=== PATIENT | female | born 1960 | race Hispanic/Latino ===

== ENCOUNTER 2019-07-03 12:13 | Observation (INO) | payer SELFPAY ==
[2019-07-03 12:39] LABS: #Basophils 0.1 thou/uL (0.0-0.2); #Eosinphils 0.4 thou/uL (0.0-0.7); #Monocytes 0.4 thou/uL (0.11-0.59); #Neutrophils 4.3 thou/uL (1.40-6.50); %Basophils 1.1 % (0.0-1.0); %Eosinophils 5.4 % (0.0-10.0); %Lymphocytes 27.5 % (21.0-51.0); %Monocytes 5.8 % (0.0-10.0); %Neutrophils 60.1 % (42.0-75.0); Hemoglobin 11.6 g/dL (12.0-16.0); Mean Corpuscular HGB CONC 32.6 g/dL (32.0-36.0); Mean Corpuscular Hemoglobin 31.4 pg (27.0-31.0); Mean Corpuscular Volume 96.3 fL (78.0-98.0); Mean Platelet Volume 6.6 fL (7.4-10.4); Platelet Count 218 thou/uL (130-400); RBC Distribution Width 12.6 % (11.5-14.5); White Blood Cell (WBC) Count 7.1 thou/uL (4.8-10.8)
[2019-07-03 13:02] LABS: ALT (SGPT) 42 U/L (8-55); AST (SGOT) 24 U/L (5-34); Albumin 4.1 g/dL (3.5-5.0); Alkaline Phosphatase 110 U/L (40-110); Anion Gap 14 mmol/L (10-20); BUN (Urea Nitrogen) 9 mg/dL (9.8-20.1); Bilirubin, Total 0.4 mg/dL (0.2-1.2); Calc. Creatinine Clearance 0 mL/min (70-130); Calcium 9.5 mg/dL (7.8-10.44); Carbon Dioxide 24 mmol/L (22-29); Chloride 105 mmol/L (98-107); Estimated GFR-MDRD 80; Glucose 122 mg/dL (70-105); Potassium 3.8 mmol/L (3.5-5.1); Protein, Total 8.1 g/dL (6.0-8.3); Sodium 139 mmol/L (136-145)
[2019-07-03] MEDS ORDERED: Aspirin Chewable 81 MG TAB ONE (14:04)
[2019-07-03] MEDS ORDERED: Nitroglycerin 0.4 MG TAB (25 Tab Bottle) PO PRN (14:11)
[2019-07-03] MEDS ORDERED: Lorazepam 0.5 MG TAB PO PRN (14:14)
--- NOTE | 2019-07-03 15:04 | RAD ---
CHEST ONE VIEW: 07/03/19 HISTORY: Chest pain. COMPARISON: None. FINDINGS: Heart size is upper limits of normal. No confluent air space consolidation, pneumothorax, or effusion . No acute osseous abnormality. IMPRESSION: No acute intrathoracic abnormality. POS: H
--- NOTE | 2019-07-03 15:29 | PDOC.HHP ---
Hospitalist HPI - History of Present Illness Chest pain History of Present Illness: This patient is a 59-year-old female with a history of diabetes hyperlipidemia. She presented to the emergency department reporting chest pain. Patient reports the pain is primarily on her left side. Pain actually started about 6 days ago. It was a Sunday and she was in [place] with her daughter. Said the pain continued to linger when she returned home yesterday when she woke it was more severe when she ultimately had to go home from work. She took 1 of her anxiety medications and had no relief. Today she woke and still had the pain present. She describes the pain as "uncomfortable". She has shooting pains that radiate up into the left neck and down the left arm. These last 2 to 3 seconds and stop. She does have some numbness in her left hand that preceded this chest pain. She reports that she has some mild weakness and thinks she has occasionally almost dropped things at work. She denies any associated shortness of breath nausea or lightheadedness. She is tried no medications for this. She reports the pain is more intense when she is lying on her right side. ED Course: Patient was given aspirin in the emergency department. She denied any acute pain and therefore no further interventions were attempted medically. Hospitalist ROS - Review of Systems Constitutional: denies: fever, chills Respiratory: denies: shortness of breath Cardiovascular: reports: chest pain. denies: palpitations, edema Gastrointestinal: denies: nausea, vomiting, abdominal pain Musculoskeletal: reports: neck pain (Chronic left-sided neck pain) All other systems reviewed; all pertinent +/- noted in HPI/Subj - Medication Medications: metFORMIN Nargis July 03, 2019 12:34 Souza RN, Daniel tablet : Strength - 1,000 mg : ORAL Patient Dose: 1000 mg Oral 2 times a day. aspirin oral SunJuly 03, 2019 12:34 Souza RN, Daniel tablet : Strength - 81 mg : ORAL Patient Dose: Unknown. Pepcid AC SunJuly 03, 2019 12:34 Souza RN, Daniel tablet : Strength - 20 mg : ORAL Patient Dose: Unknown. meloxicam SunJuly 03, 2019 12:35 Souza RN, Daniel tablet : Strength - 15 mg : ORAL Patient Dose: Unknown. LORazepam oral SunJuly 03, 2019 12:35 Souza RN, Daniel tablet : Strength - 0.5 mg : ORAL Patient Dose: Unknown. glipiZIDE SunJuly 03, 2019 12:35 Souza RN, Daniel tablet : Strength - 5 mg : ORAL Patient Dose: Unknown. DULoxetine SunJuly 03, 2019 12:35 Souza RN, Daniel capsule,delayed release(DR/EC) : Strength - 60 mg : ORAL Patient Dose: Unknown. pregabalin (bulk) SunJuly 03, 2019 12:36 Souza RN, Daniel powder : Strength - 100 % : MISCELLANEOUS Patient Dose: 50 mg Oral. rosuvastatin SunJuly 03, 2019 12:36 Souza RN, Daniel tablet : Strength - 10 mg : ORAL Patient Dose: Unknown. Hospitalist History - Past Medical History Source: patient Cardiac: reports: Hyperlipidemia Musculoskeletal: reports: Osteoarthritis Endocrine: reports: Diabetes - Past Surgical History Past Surgical History: reports: , Hysterectomy Other Surgical History: Knee surgery. Right rotator cuff surgery. - Family History Family History: reports: cardiac disorder (Father had congestive heart failure) - Social History Smoking Status: Never smoker Alcohol: reports: Occassional Drugs: reports: none Living Situation: With Family Activity level: independent ambulation Other Social History: . She is full code. Her son Leonard would be her surrogate decision maker should that be necessary. - Exam General Appearance: NAD, awake alert Eye: PERRL, anicteric sclera ENT: normocephalic atraumatic, no oropharyngeal lesions, moist mucosa Neck: supple, symmetric, no JVD, no thyromegaly, no lymphadenopathy, no carotid bruit Heart: RRR, no murmur, no gallops, no rubs, normal peripheral pulses Respiratory: CTAB, no wheezes, no rales, no ronchi, normal chest expansion, no tachypnea, normal percussion Gastrointestinal: soft, non-tender, non-distended, normal bowel sounds, no palpable masses, no hepatomegaly, no splenomegaly, no bruit Extremities: no cyanosis, no clubbing, no edema Skin: normal turgor, no lesions, no rashes Neurological: cranial nerve grossly intact, normal sensation to touch, no weakness, no focal deficits, no new deficit Musculoskeletal: normal tone, normal strength, no muscle wasting Psychiatric: normal affect, normal behavior, A&O x 3 Hospitalist Results - Labs Result Diagrams: 07/03/19 12:25 07/03/19 12:25 Lab results: WBC 7.1 thou/uL (4.8-10.8) 07/03/19 12:25 Hgb 11.6 g/dL (12.0-16.0) L 07/03/19 12:25 Hct 35.6 % (36.0-47.0) L 07/03/19 12:25 MCV 96.3 fL (78.0-98.0) 07/03/19 12:25 Plt Count 218 thou/uL (130-400) 07/03/19 12:25 Neutrophils % 60.1 % (42.0-75.0) 07/03/19 12:25 Sodium 139 mmol/L (136-145) 07/03/19 12:25 Potassium 3.8 mmol/L (3.5-5.1) 07/03/19 12:25 Chloride 105 mmol/L (98-107) 07/03/19 12:25 Carbon Dioxide 24 mmol/L (22-29) 07/03/19 12:25 BUN 9 mg/dL (9.8-20.1) L 07/03/19 12:25 Creatinine 0.74 mg/dL (0.6-1.1) 07/03/19 12:25 Glucose 122 mg/dL (70-105) H 07/03/19 12:25 Calcium 9.5 mg/dL (7.8-10.44) 07/03/19 12:25 Total Bilirubin 0.4 mg/dL (0.2-1.2) 07/03/19 12:25 AST 24 U/L (5-34) 07/03/19 12:25 ALT 42 U/L (8-55) 07/03/19 12:25 Alkaline Phosphatase 110 U/L (40-110) 07/03/19 12:25 Troponin I Less than 0.010 ng/mL (< 0.028) 07/03/19 12:25 B-Natriuretic Peptide 34.2 pg/mL (0-100) 07/03/19 12:25 Serum Total Protein 8.1 g/dL (6.0-8.3) 07/03/19 12:25 Albumin 4.1 g/dL (3.5-5.0) 07/03/19 12:25 - EKG Interpretation EKG: No acute findings. Hospitalist H&P A/P - Problem (1) Chest pain Code(s): R07.9 - CHEST PAIN, UNSPECIFIED Status: Acute (2) Diabetes mellitus Code(s): E11.9 - TYPE 2 DIABETES MELLITUS WITHOUT COMPLICATIONS Status: Acute (3) Hyperlipidemia Code(s): E78.5 - HYPERLIPIDEMIA, UNSPECIFIED Status: Acute (4) Anxiety Code(s): F41.9 - ANXIETY DISORDER, UNSPECIFIED Status: Acute (5) Depression Code(s): F32.9 - MAJOR DEPRESSIVE DISORDER, SINGLE EPISODE, UNSPECIFIED Status : Acute (6) Osteoarthritis Code(s): M19.90 - UNSPECIFIED OSTEOARTHRITIS, UNSPECIFIED SITE Status: Acute - Plan Plan: Chest pain: Patient will be placed in observation on telemetry. We will continue serial troponins. PRN nitroglycerin. Stress test in the morning assuming the troponins were negative. I am also concerned about possible cervical neuropathy /radiculopathy given the nature of the symptoms and the numbness in the hand. Will obtain an MRI of the C-spine. Diabetes mellitus: continue with her usual home medications. Accu-Cheks. Hyperlipidemia: Continue with her home dose of rosuvastatin.
[2019-07-03 16:01] LABS: Troponin I Less than 0.010 ng/mL (< 0.028)
[2019-07-03 17:26] VITALS: BMI 30.2
[2019-07-03] MEDS: metFORMIN 500 MG TAB PO SCH (18:09)
[2019-07-03 18:42] LABS: Troponin I Less than 0.010 ng/mL (< 0.028)
--- NOTE | 2019-07-03 19:27 | MRI ---
MRI OF THE CERVICAL SPINE WITHOUT CONTRAST: 07/03/19 INDICATION: History of neck and left arm pain. COMPARISON: None. FINDINGS: The visualized bone marrow signal intensity appears within normal limits. The visualized posterior fo ssa is normal appearing. At C2-3, there is moderate left facet joint degenerative change. There is no appreciable central susy l or neural foraminal narrowing. At C3-4, there is a mild broad based bulge with moderate left and mild right facet joint degenerative change. There is mild left neural foraminal narrowing. At C4-5, there is mild broad based bulge with facet hypertrophy and a small left paracentral disc pro trusion. The protrusion causes mild effacement of the subarachnoid space with mild ventral cord effac ement. At C5-6, there is a broad based bulge with a superimposed central protrusion. There is no neural fora milton narrowing. At C6-7, there is an asymmetric to the left broad based bulge with a superimposed left foraminal prot rusion causing mild left neural foraminal narrowing. At C7-T1, there is no appreciable central canal or neural foraminal narrowing. IMPRESSION: 1. Mild central canal narrowing at C4-5 due to a broad based bulge and superimposed left paracen tral protrusion. There is mild ventral effacement of the left subarachnoid space and ventral cord. 2. Small central protrusion at C5-6 with mild ventral subarachnoid effacement without cord compr ession. 3. Asymmetric to the left broad based disc bulge with a small left foraminal disc protrusion cau sing mild left neural foraminal narrowing at C6-7. POS: ROSAURA
[2019-07-04] MEDS ORDERED: Melatonin 3 MG TAB PO PRN ×2 (01:46→02:05)
[2019-07-04] MEDS ORDERED: Sodium Chloride 0.9% 10 ML ONE (08:21)
[2019-07-04] MEDS ORDERED: Aspirin 325 mg Enteric Coated Tablet PO SCH (09:00)
[2019-07-04] MEDS ORDERED: DULoxetine 60 MG CAP PO SCH (09:00)
[2019-07-04] MEDS: metFORMIN 500 MG TAB PO SCH (12:22)
--- NOTE | 2019-07-04 12:31 | NM ---
Radionucleotide stress and rest myocardial perfusion scan with CT attenuation correction and SPECT im aging Left ventricular wall motion evaluation and ejection fraction HISTORY: Chest pain. FINDINGS: [place] protocol. Total test time 4:36. There is homogeneous uptake of radiotracer throughout the left ventricular myocardium. No focal perfu barrington defect or reversibility. QGS analysis of gated SPECT images shows no focal wall motion abnormalities. LHR 76%. T.i.d. 0.82. Left ventricular ejection fraction calculated at greater than 80%. IMPRESSION: No evidence of ischemia. Normal LVEF.
[2019-07-04 13:03] VITALS: BP 128/59; TEMP 97.9
--- NOTE | 2019-07-04 14:27 | EKG ---
Test Reason : Blood Pressure : / mmHG Vent. Rate : 075 BPM Atrial Rate : 075 BPM P-R Int : 140 ms QRS Dur : 088 ms QT Int : 406 ms P-R-T Axes : 011 -12 031 degrees QTc Int : 453 ms Normal sinus rhythm Nonspecific T wave abnormality Abnormal ECG Confirmed by JUANITA ARREAGA ([id number]), editor at large ENEDINA DOBBS ([id number]) on 07/04/2019 2:27:43 PM Referred By: Confirmed By:JUANITA Rosales
--- NOTE | 2019-07-05 22:23 | DIS ---
DATE OF ADMISSION: 07/03/2019 DATE OF DISCHARGE: 07/04/2019 DISCHARGE DIAGNOSES: 1. Chest pain, likely noncardiac. 2. Mild degenerative disease of the cervical spine. 3. Diabetes mellitus. 4. Hyperlipidemia. 5. Osteoarthritis. 6. Anxiety/depression. HISTORY OF PRESENT ILLNESS: This patient is a 59-year-old female, who presented to the emergency department was some atypical type chest pain which had gone on for several days. It was in the left side of her chest, seemed to be associated with some occasional sharp pains into her left neck and left hand at times. Her initial workup was unremarkable with no EKG findings and a negative troponin. HOSPITAL COURSE: The patient was placed in observation where she had serial troponins, which remained negative. She underwent a nuclear medicine stress test, which was unremarkable. There was no evidence of any ischemia and the TID was 0.8. Ejection fraction was calculated at greater than 80%. She also had an MRI of the cervical spine given the radiation of symptoms and the numbness in her hand. This revealed mild central canal narrowing at C4-5 due to a broad-based bulge and superimposed left paracentral protrusion with mild ventral effacement of the left subarachnoid space and ventral cord. Small central protrusion of the C5-C6 with ventral subarachnoid effacement without cord compression and asymmetric to the left broad-based disk bulge with a small left foraminal disk protrusion causing mild left neural foraminal narrowing at C6-7. The patient's symptoms had improved substantially by the following morning. She expressed some concerns about some chronic insomnia and was directed to refer that back to her primary care provider. PHYSICAL EXAMINATION: VITAL SIGNS: On the day of discharge, temperature is 97.9, pulse 73, respirations 16, O2 saturation 97% on room air, BP was 128/59. GENERAL: The patient appeared well. HEART: Regular rate and rhythm. LUNGS: Clear. ABDOMEN: Benign. EXTREMITIES: Had no edema. DISPOSITION: The patient is discharged to home. She will continue with her usual medication regimen. ACTIVITY: As tolerated. FOLLOWUP: She is encouraged to follow up with Dr. Butts, her PCP in order to address possible cervical spine issues and her insomnia. She can return to the hospital at anytime, if she feels the need to do so. Job ID: [id number]
== END 2019-07-04 16:33 | disposition home or self-care (01) ==
LOC: ERS 12:13 → 2NO 14:02
PROVIDERS: ADMIT Internal Medicine; ATTEND Internal Medicine
DX: R07.89 Other chest pain (principal); M47.812 Spondylosis without myelopathy or radiculopathy, cervical region; E11.9 Type 2 diabetes mellitus without complications; E78.5 Hyperlipidemia, unspecified; M19.90 Unspecified osteoarthritis, unspecified site; F41.9 Anxiety disorder, unspecified; F32.9 Major depressive disorder, single episode, unspecified; M48.02 Spinal stenosis, cervical region; Z79.1 Long term (current) use of non-steroidal anti-inflammatories (NSAID); Z79.82 Long term (current) use of aspirin; Z79.84 Long term (current) use of oral hypoglycemic drugs; Z79.899 Other long term (current) drug therapy; Z88.8 Allergy status to other drugs, medicaments and biological substances
CPT/HCPCS: 36415; 36600; 71045; 72141; 78452; 80053; 83880; 84484; 85025; 90471; 90732; 93005; 93017; 94760; A9500; G0009; G0378

== ENCOUNTER 2022-06-12 10:28 | Outpatient (CLI) | payer BC ==
[2022-06-12 12:20] LABS: #Basophils 0.1 10x3/uL (0.0-0.2); #Eosinphils 0.5 10x3/uL (0.0-0.5); #Monocytes 0.5 10x3/uL (0.0-1.1); #Neutrophils 3.1 10x3/uL (1.5-8.4); %Basophils 1.3 % (0.0-2.0); %Eosinophils 8.2 % (0.0-6.0); %Lymphocytes 33.6 % (18.0-47.0); %Monocytes 7.7 % (0.0-10.0); Hemoglobin 9.7 g/dL (12.0-15.5); Mean Corpuscular HGB CONC 31.3 g/dL (32.0-36.0); Mean Corpuscular Hemoglobin 26.7 pg (27.0-33.0); Mean Corpuscular Volume 85.4 fl (81.6-98.3); Mean Platelet Volume 9.8 fl (7.4-10.4); Platelet Count 234 10x3/uL (150-450); Red Blood Cell (RBC) Count 3.63 10x6/uL (3.90-5.03); White Blood Cell (WBC) Count 6.3 10x3/uL (3.5-10.5)
[2022-06-12 13:22] LABS: Anion Gap 16 mmol/L (10-20); BUN (Urea Nitrogen) 8 mg/dL (9.8-20.1); Calc. Creatinine Clearance 0 mL/min (70-130); Calcium 9.1 mg/dL (7.8-10.44); Carbon Dioxide 20 mmol/L (23-31); Chloride 108 mmol/L (98-107); Estimated GFR 89; Glucose 178 mg/dL (80-115); Potassium 3.6 mmol/L (3.5-5.1); Sodium 140 mmol/L (136-145)
== END 2022-06-12 10:29 | disposition home or self-care (01) ==
LOC: LABBT 10:28
PROVIDERS: ATTEND Orthopaedic Surgery
DX: Z01.818 Encounter for other preprocedural examination (principal); M75.122 Complete rotator cuff tear or rupture of left shoulder, not specified as traumatic
CPT/HCPCS: 80048; 85025; 93005; 93010

== ENCOUNTER 2023-04-13 09:10 | Outpatient (CLI) | payer OTHER ==
[2023-04-13 10:53] LABS: #Basophils 0.1 10x3/uL (0.0-0.2); #Eosinphils 0.9 10x3/uL (0.0-0.5); #Monocytes 0.5 10x3/uL (0.0-1.1); #Neutrophils 3.2 10x3/uL (1.5-8.4); %Basophils 1.3 % (0.0-2.0); %Eosinophils 14.6 % (0.0-6.0); %Lymphocytes 26.5 % (18.0-47.0); %Monocytes 7.6 % (0.0-10.0); %Neutrophils 49.8 % (40.0-75.0); Hematocrit 33.4 % (34.9-44.5); Mean Corpuscular HGB CONC 32.9 g/dL (32.0-36.0); Mean Corpuscular Hemoglobin 31.2 pg (27.0-33.0); Mean Corpuscular Volume 94.6 fl (81.6-98.3); Mean Platelet Volume 9.6 fl (7.4-10.4); Platelet Count 195 10x3/uL (150-450); RBC Distribution Width 15.6 % (11.5-14.5); Red Blood Cell (RBC) Count 3.53 10x6/uL (3.90-5.03); White Blood Cell (WBC) Count 6.3 10x3/uL (3.5-10.5)
[2023-04-13 11:05] LABS: Anion Gap 12 mmol/L (10-20); BUN (Urea Nitrogen) 10 mg/dL (9.8-20.1); Calc. Creatinine Clearance 0 mL/min (70-130); Calcium 9.1 mg/dL (7.8-10.44); Carbon Dioxide 21 mmol/L (23-31); Chloride 110 mmol/L (98-107); Estimated GFR 93; Glucose 120 mg/dL (80-115); Potassium 3.4 mmol/L (3.5-5.1); Sodium 140 mmol/L (136-145)
== END 2023-04-13 09:11 | disposition home or self-care (01) ==
LOC: LABBT 09:10
PROVIDERS: ATTEND Orthopaedic Surgery
DX: Z01.818 Encounter for other preprocedural examination (principal); M75.122 Complete rotator cuff tear or rupture of left shoulder, not specified as traumatic
CPT/HCPCS: 80048; 85025; 93005; 93010

== ENCOUNTER 2023-06-14 07:03 | Day surgery (SDC) | payer MEDICARE, OTHER ==
[2023-06-07 09:43] VITALS: BMI 29.9
[2023-06-14] MEDS ORDERED: Midazolam HCl 2 mg/2 ml Vial ONE (08:10)
[2023-06-14] MEDS ORDERED: fentaNYL 50 mcg/mL 1 mL Vial ONE ×2 (08:10→09:05)
[2023-06-14] MEDS ORDERED: Ropivacaine 0.5% HCl/PF (150 MG/30 ML VIAL) ONE (08:11)
[2023-06-14] MEDS ORDERED: Ropivacaine 0.2% HCl/PF 20 ML ONE (08:11)
[2023-06-14] MEDS ORDERED: PROPOFOL 20 ML ONE ×2 (09:05→11:29)
[2023-06-14] MEDS ORDERED: Rocuronium Bromide 10 MG/ML (10ML VIAL) ONE (09:06)
[2023-06-14] MEDS ORDERED: Phenylephrine 10 MG/ML VIAL ONE (09:10)
[2023-06-14] MEDS ORDERED: PHENYLEPHRINE-NS 100 MCG/ML 10 ML SYRINGE ONE (09:10)
[2023-06-14] MEDS ORDERED: Sodium Chloride 0.9% 250 ML 250 ML ONE (09:13)
[2023-06-14] MEDS ORDERED: Ropivacaine 0.2% 550 ML 550 ML NERVE BLCK SCH (09:15)
[2023-06-14] MEDS ORDERED: Zolpidem Tartrate 5 MG TAB PO PRN (09:15)
[2023-06-14] MEDS ORDERED: Ondansetron PF 4 MG/2 ML Vial IVP PRN (09:15)
[2023-06-14] MEDS ORDERED: HYDROcodone/Acetaminophen 5/325 mg Tablet PO PRN ×2 (09:15)
[2023-06-14] MEDS ORDERED: Promethazine HCl 25 MG/ML VIAL IM PRN (09:15)
[2023-06-14] MEDS ORDERED: traMADol HCl 50 MG TAB PO PRN ×2 (09:15)
[2023-06-14] MEDS ORDERED: CEFAZOLIN 2 GM VIAL ONE (09:48)
[2023-06-14] MEDS ORDERED: EPINEPHrine 1 MG/ML VIAL ONE (09:48)
[2023-06-14] MEDS ORDERED: Lidocaine 1% (PF) 30 ML VIAL ONE (09:49)
[2023-06-14] MEDS ORDERED: fentaNYL PF 100 MCG/2 ML SYRINGE ONE (10:17)
[2023-06-14] MEDS ORDERED: diphenhydrAMINE 50 MG/ML VIAL ONE (10:48)
[2023-06-14] MEDS ORDERED: Metoclopramide HCl 10 MG (2 mL) VIAL ONE (10:48)
[2023-06-14] MEDS ORDERED: Ondansetron PF 4 MG/2 ML Vial ONE (10:48)
[2023-06-14] MEDS ORDERED: SUGAMMADEX SODIUM 200 MG/2 ML VIAL ONE (11:30)
[2023-06-14] MEDS ORDERED: Dexamethasone 4 mg/ml Vial ONE (11:35)
[2023-06-14] MEDS ORDERED: Acetaminophen 325 MG TAB ONE (12:46)
== END 2023-06-14 14:02 | disposition home or self-care (01) ==
LOC: SDC 07:03
PROVIDERS: ATTEND Orthopaedic Surgery
PROC: 0LS40ZZ Reposition Left Upper Arm Tendon, Open Approach (ICD-10-PCS; principal; 2023-06-14)
PROC: 0LS40ZZ Reposition Left Upper Arm Tendon, Open Approach (ICD-10-PCS; 2023-06-14)
DX: M75.122 Complete rotator cuff tear or rupture of left shoulder, not specified as traumatic (principal); M75.22 Bicipital tendinitis, left shoulder; M17.0 Bilateral primary osteoarthritis of knee; E11.9 Type 2 diabetes mellitus without complications; F32.A Depression, unspecified; F41.9 Anxiety disorder, unspecified; E78.00 Pure hypercholesterolemia, unspecified; Z90.710 Acquired absence of both cervix and uterus; Z98.890 Other specified postprocedural states; Z79.899 Other long term (current) drug therapy; Z88.8 Allergy status to other drugs, medicaments and biological substances; Z88.5 Allergy status to narcotic agent
CPT/HCPCS: 23430; 29827; 64415; 82962; A4306; C1713 ×3; J0171; J3010; 36416; J1100; J1200; J2001; J2250; J2371; J2405; J2704; J2765; J2795; J7050